=== PATIENT | female | born 1950 | race Caucasian/White ===

== ENCOUNTER → 2017-08-11 | Day surgery (SDC) | payer OTHER ==
[~2017-08-11] MED LIST: MACROBID 100 M100 MG PO; TYLENOL-CODEINE1 TAB PO
== END | disposition home or self-care (01) ==
LOC: ADM 08-07 08:30 → CIR.AMB 07:40
DX: M72.0 Palmar fascial fibromatosis [Dupuytren] (principal)

== ENCOUNTER 2018-06-30 10:42 | Emergency (ER) | payer OTHER ==
[~2018-06-30] VITALS: Ht 165.1 cm; Wt 68.0 kg
== END 2018-06-30 14:54 | disposition home or self-care (01) ==
LOC: ER 10:42
DX: B34.9 Viral infection, unspecified (principal)

== ENCOUNTER 2018-10-11 09:38 | Outpatient (CLI) | payer OTHER | END 2018-10-11 09:42 | disposition home or self-care (01) | LOC: SONOGRAMA 09:38 | DX: E04.2 Nontoxic multinodular goiter (principal) ==